=== PATIENT | male | born 1940 | race Caucasian/White ===

== ENCOUNTER 2021-05-31 05:30 | Day surgery (SDC) | payer MEDICARE ==
[2021-05-26 09:07] LABS: BASOPHILS % (AUTO) 0.3 % (0.0-5.0); EOSINOPHILS % (AUTO) 3.5 % (0.0-8.0); HEMATOCRIT 35.5 % (42-54); LYMPHOCYTES % (AUTO) 16.5 % (21.0-51.0); MEAN CORPUSCULAR HEMOGLOBIN 31.2 pg (27.0-33.0); MEAN CORPUSCULAR HGB CONC 31.5 g/dL (32.0-36.0); MEAN CORPUSCULAR VOLUME 98.9 fL (79-99); MONOCYTES % (AUTO) 11.4 % (3.0-13.0); NEUTROPHILS % (AUTO) 68.2 % (40.0-77.0); PLATELET COUNT (AUTO) 132 K/uL (130-400); RED BLOOD CELL COUNT(AUTO) 3.59 MIL/uL (4.50-6.20); RED CELL DISTRIBUTION WIDTH 14.7 % (11.0-15.5); WHITE BLOOD COUNT (AUTO) 7.4 K/uL (4.8-10.8)
[2021-05-26 09:10] LABS: APPEARANCE,URINE Clear (CLEAR); BILIRUBIN,URINE Negative (NEGATIVE); COLOR,URINE Yellow (YELLOW); GLUCOSE, URINE (UA) Negative (NEGATIVE); KETONES,URINE Negative (NEGATIVE); LEUKOCYTE ESTERASE ,URINE Small (NEGATIVE); NITRATE,URINE Negative (NEGATIVE); OCCULT BLOOD,URINE Moderate (NEGATIVE); PROTEIN,URINE Negative (NEGATIVE)
[2021-05-26 09:14] LABS: CREATININE 1.5 mg/dL (0.5-1.5); POTASSIUM 4.1 mmol/L (3.5-5.1)
[2021-05-26 09:17] LABS: INR 2.13 (0.85-1.15); PROTHROMBIN TIME 21.7 SEC (9.6-11.6)
[2021-05-26 09:18] LABS: PARTIAL THROMBOPLASTIN TIME 33.3 SEC (26.3-35.5)
[2021-05-26 09:43] LABS: BACTERIA,URINE Rare /HPF (None Seen); RBC,URINE 0-1 /HPF (0-1); SQUAMOUS EPITHELIAL CELL,UR Rare /HPF (0-2); WBC,URINE 0-1 /HPF (0-1)
[2021-05-30 14:04] VITALS: BP 160/90
[2021-05-31] VITALS (27 sets, daily range): BP systolic 122–162; BP diastolic 54–88
[~2021-05-31] VITALS: Ht 167.6 cm; Wt 90.4 kg
[~2021-05-31 05:30] MED LIST: AEC81 PO; ATOR10 PO; BIMA12.5OS OU; DORZ10DR10 OU; EYE VITAMIN PO; FURO20TA4 PO; LISI40TA9 PO; METO-391 PO; METO-409 PO; OMEP20CA12 PO; WARF-57 PO; WARF2.5T85 PO
[2021-05-31] MEDS ORDERED: FLUMAZENIL 0.1MG/1ML 5ML VIAL IV ONE (06:49)
[2021-05-31] MEDS ORDERED: LIDOCAINE HCL 2% VISCOUS 15 ML UDCUP ONE (06:49)
[2021-05-31] MEDS ORDERED: NALOXONE HCL 0.4 MG/1 ML ML ONE (06:50)
[2021-05-31] MEDS ORDERED: FENTANYL CITRATE PF 50 MCG/1 ML 2ML VIAL ONE ×2 (06:50→08:49)
[2021-05-31] MEDS ORDERED: 0.9%NACL 1000ML 1,000 ML IV ONE (06:50)
[2021-05-31] MEDS ORDERED: MIDAZOLAM HCL 1 MG/ML 2ML VIAL ONE ×2 (06:51→08:49)
[2021-05-31] MEDS ORDERED: IOHEXOL 350 MG/ML 100ML INFUS..BTL IV ONE ×2 (08:26→09:50)
[2021-05-31] MEDS ORDERED: IOHEXOL-350 50ML VIAL IV ONE (08:26)
[2021-05-31] MEDS ORDERED: LIDOCAINE HCL 400MG/20ML VIAL ONE ×2 (08:26→08:27)
[2021-05-31] MEDS ORDERED: NITROGLYCERIN 50MG VIAL ONE (08:28)
[2021-05-31] MEDS ORDERED: HEPARIN 10,000 UNIT/10ML (1,000 UNIT/ML) VIAL ONE (09:18)
[2021-05-31] MEDS ORDERED: NICARDIPINE 25MG INJ IV ONE (09:18)
[2021-05-31] MEDS ORDERED: DEXTROSE 50%-WATER 50 ML DISP.SYRIN IV PRN (10:30)
[2021-05-31] MEDS ORDERED: GLUCAGON 1MG KIT 1 MG ML IM PRN (10:30)
[2021-05-31] MEDS ORDERED: 0.9%NACL 1000ML 1,000 ML IV SCH (10:30)
[2021-05-31] MEDS ORDERED: ATORVASTATIN 20 MG TABLET PO SCH (21:00)
[2021-05-31] MEDS ORDERED: METOPROLOL SUCCINATE 50 MG TAB.SR.24H PO SCH (21:00)
[2021-05-31] MEDS ORDERED: LATANOPROST 2.5 ML DROPS OU SCH (21:00)
[2021-06-01] MEDS ORDERED: METOPROLOL SUCCINATE 50 MG TAB.SR.24H PO SCH (09:00)
[2021-06-01] MEDS ORDERED: LISINOPRIL 40 MG TABLET PO SCH (09:00)
[2021-06-01] MEDS ORDERED: FUROSEMIDE 20 MG TABLET PO SCH (09:00)
[2021-06-01] MEDS ORDERED: ASPIRIN 81 MG EC TAB PO SCH (09:00)
== END 2021-05-31 14:36 | disposition home or self-care (01) ==
LOC: DAH 05:30 → UNDOADMOB 05:31 → DAH 05:31 → DAHIP 05:31 → DAH 14:36 → DAHIP 14:36
PROVIDERS: ATTEND Internal Medicine
DX: I35.0 Nonrheumatic aortic (valve) stenosis (principal); I25.10 Atherosclerotic heart disease of native coronary artery without angina pectoris; I13.0 Hypertensive heart and chronic kidney disease with heart failure and stage 1 through stage 4 chronic kidney disease, or unspecified chronic kidney disease; N18.9 Chronic kidney disease, unspecified; I50.22 Chronic systolic (congestive) heart failure; I42.8 Other cardiomyopathies; E78.5 Hyperlipidemia, unspecified; I48.20 Chronic atrial fibrillation, unspecified; Z90.89 Acquired absence of other organs; Z90.49 Acquired absence of other specified parts of digestive tract; Z79.01 Long term (current) use of anticoagulants; Z98.890 Other specified postprocedural states; Z79.899 Other long term (current) drug therapy
CPT/HCPCS: 36415; 71045; 80048; 81001; 85025; 85610; 85730; 93005; 93312; 93460; 93567; A4215 ×2; A4216; A4221; A4222; A4223 ×3; A4606; A4615; A4657; A4663; A7002; C1769 ×4; C1874; C1887; C1894 ×3; J1644 ×3; J2250 ×2; J3010; J3490 ×4; J7030 ×2; Q9965 ×2; Q9967 ×3; 99152; 99156; 99157; J2310

== ENCOUNTER 2022-04-06 07:52 | Day surgery (SDC) | payer MEDICARE ==
[2022-04-04 13:28] LABS: BASOPHILS % (AUTO) 0.2 % (0.0-5.0); EOSINOPHILS % (AUTO) 2.4 % (0.0-8.0); LYMPHOCYTES % (AUTO) 19.5 % (21.0-51.0); MEAN CORPUSCULAR HEMOGLOBIN 30.7 pg (27.0-33.0); MEAN CORPUSCULAR HGB CONC 32.2 g/dL (32.0-36.0); MEAN CORPUSCULAR VOLUME 95.2 fL (79-99); MONOCYTES % (AUTO) 8.5 % (3.0-13.0); NEUTROPHILS % (AUTO) 69.2 % (40.0-77.0); PLATELET COUNT (AUTO) 123 K/uL (130-400); RED BLOOD CELL COUNT(AUTO) 3.78 MIL/uL (4.50-6.20); RED CELL DISTRIBUTION WIDTH 13.2 % (11.0-15.5); WHITE BLOOD COUNT (AUTO) 6.4 K/uL (4.8-10.8)
[2022-04-04 13:36] LABS: CREATININE 1.5 mg/dL (0.5-1.5); POTASSIUM 4.1 mmol/L (3.5-5.1)
[2022-04-04 13:38] LABS: INR 0.94 (0.85-1.15); PROTHROMBIN TIME 10.3 SEC (9.6-11.6)
[2022-04-04 13:40] LABS: PARTIAL THROMBOPLASTIN TIME 25.6 SEC (26.3-35.5)
[2022-04-05 10:40] VITALS: BP 169/68
[~2022-04-06] VITALS: Ht 168.9 cm; Wt 78.7 kg
[2022-04-06] VITALS (11 sets, daily range): BP systolic 154–163; BP diastolic 66–77
[~2022-04-06 07:52] MED LIST changes: +0.9%NACL 1000ML 1,000 ML IV SCH; +ACET-2123 PO; +CARV3.12 PO; +CEFAZOLIN SODIUM 2 GM VIAL IVPB SCH; +FURO40TA5 PO; -LISI40TA9 PO; -METO-391 PO; -METO-409 PO; -WARF-57 PO; -WARF2.5T85 PO
[2022-04-06] MEDS ORDERED: BUPIVACAINE/PF 0.25% 30ML VIAL IJ ONE (09:58)
[2022-04-06] MEDS ORDERED: CEFAZOLIN SODIUM 1 GM VIAL ONE (09:58)
[2022-04-06] MEDS ORDERED: MIDAZOLAM HCL 1 MG/ML 2ML VIAL ONE ×3 (09:58→11:57)
[2022-04-06] MEDS ORDERED: LIDOCAINE HCL 1% 20 ML VIAL ONE (09:58)
[2022-04-06] MEDS ORDERED: MEPERIDINE-PF 25 MG/ML SYG ONE ×3 (09:59→11:57)
[2022-04-06] MEDS ORDERED: IODIXANOL 320 MG/ML 100 ML VIAL ONE (10:19)
[2022-04-06] MEDS ORDERED: BACITRACIN 1 EACH PACKET TP ONE (12:28)
[2022-04-06] MEDS ORDERED: ACETAMINOPHEN 500 MG TABLET PO PRN (13:00)
[2022-04-06] MEDS ORDERED: ACETAMINOPHEN WITH CODEINE 1 TAB TAB PO PRN (13:00)
[2022-04-06] MEDS ORDERED: TRAM50TA4 PO (13:06)
[2022-04-06] MEDS ORDERED: ONDANSETRON 4MG INJ ONE (16:08)
== END 2022-04-06 17:03 | disposition home or self-care (01) ==
LOC: DAH 07:52
PROVIDERS: ATTEND Internal Medicine Cardiovascular Disease
DX: Z45.010 Encounter for checking and testing of cardiac pacemaker pulse generator [battery] (principal); I49.5 Sick sinus syndrome; I42.0 Dilated cardiomyopathy; I44.7 Left bundle-branch block, unspecified; I48.21 Permanent atrial fibrillation; I50.22 Chronic systolic (congestive) heart failure; I25.10 Atherosclerotic heart disease of native coronary artery without angina pectoris; I25.2 Old myocardial infarction; Z79.01 Long term (current) use of anticoagulants; Z79.82 Long term (current) use of aspirin; Z79.899 Other long term (current) drug therapy; Z95.5 Presence of coronary angioplasty implant and graft; Z90.89 Acquired absence of other organs; Z98.890 Other specified postprocedural states; Z90.49 Acquired absence of other specified parts of digestive tract; Z95.2 Presence of prosthetic heart valve; Z87.891 Personal history of nicotine dependence
CPT/HCPCS: 80048; 85025; 85610; 85730; 36415; 93005; 33229; 33225; 71045; C1769 ×3; C2621; C1900; J0690; J7030; J3490; J2250 ×3; J2405; J2175 ×3; Q9967; A4215; A6402; A4222; A4221; A4663; A4216; A6258; A4606; A4223 ×3; 33228; 99156; 99157